=== PATIENT | male | born 1995 | race African-American/Black ===

== ENCOUNTER 2021-07-14 07:04 | Outpatient (CLI) | payer OTHER ==
[~2021-07-14] VITALS: Ht 162.6 cm; Wt 62.8 kg
[2021-07-14 07:52] VITALS: BP 114/60; PULSE 53; TEMP 98.1
[2021-07-14 10:00] VITALS: BP 106/63; PULSE 44
--- NOTE | 2021-07-14 10:00 | NUR ---
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 PT is awake and alert, no distress. report received from Geetha ALVARADO.
[2021-07-14 10:15] VITALS: BP 112/66; PULSE 44
[2021-07-14 10:30] VITALS: BP 115/72; PULSE 42
[2021-07-14 10:45] VITALS: BP 97/63; PULSE 46
--- NOTE | 2021-07-14 11:20 | NUR ---
Dr. Shelton has been at [facility] to discuss plan for discharge. I reviewed dc and fu instructions with pt who verbalized understanding. IV is dc'd with cath intact, dressing applied. amb to exit.
== END 2021-07-14 12:00 | disposition home or self-care (01) ==
LOC: COL.CAR 07:04
DX: R55 Syncope and collapse (principal); R77.8 Other specified abnormalities of plasma proteins; F17.290 Nicotine dependence, other tobacco product, uncomplicated

== ENCOUNTER 2021-08-02 20:12 | Emergency (ER) | payer OTHER ==
[~2021-08-02] VITALS: Ht 167.6 cm; Wt 68.2 kg
[2021-08-02 20:20] VITALS: TEMP 98.5
[2021-08-02 21:43] VITALS: BP 124/80; PULSE 63
== END 2021-08-02 21:44 | disposition home or self-care (01) ==
LOC: COL.ER 20:12
DX: R00.2 Palpitations (principal); R06.02 Shortness of breath; F17.290 Nicotine dependence, other tobacco product, uncomplicated